=== PATIENT | male | born 1970 | race Caucasian/White ===

== ENCOUNTER → 2016-09-25 | Outpatient (CLI) | payer BC ==
--- NOTE | 2016-09-25 15:13 | DX ---
Lumbar spine 2 views History: Chronic low back pain. Comparison: MR lumbar spine December 15, 2012. Findings: Mild dextroscoliosis of the lumbar spine is present. There is slight increase in 10 mm ante rolisthesis of L5 on S1, previously 5 mm. Bilateral L5 pars defects are suspected. Vertebral body hei ghts are preserved. Moderate vertebral spondylosis is present at L5-S1. Mild degenerative change is p resent in the sacroiliac joints. Impression: 1. 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 2. Mild dextroscoliosis.
== END ==
LOC: FIMAGING 13:40
PROVIDERS: ATTEND Orthopaedic Surgery Orthopaedic Surgery of the Spine
DX: M47.897 Other spondylosis, lumbosacral region (principal)

== ENCOUNTER → 2016-10-30 | Outpatient (CLI) | payer BC | LOC: FIMAGING 14:44 | PROVIDERS: ATTEND Psychiatry & Neurology Neurology | DX: G35 Multiple sclerosis (principal) ==

== ENCOUNTER → 2017-03-22 | Outpatient (CLI) | payer BC | LOC: FIMAGING 16:23 | PROVIDERS: ATTEND Orthopaedic Surgery Orthopaedic Surgery of the Spine | DX: Z09 Encounter for follow-up examination after completed treatment for conditions other than malignant neoplasm (principal); Z78.0 Asymptomatic menopausal state ==

== ENCOUNTER → 2017-05-18 | Outpatient (CLI) | payer BC | LOC: FIMAGING 10:06 | PROVIDERS: ATTEND Orthopaedic Surgery Orthopaedic Surgery of the Spine | DX: Z09 Encounter for follow-up examination after completed treatment for conditions other than malignant neoplasm (principal); Z98.1 Arthrodesis status ==

== ENCOUNTER → 2017-08-18 | Outpatient (CLI) | payer BC | LOC: FIMAGING 10:54 | PROVIDERS: ATTEND Orthopaedic Surgery Orthopaedic Surgery of the Spine | DX: Z98.1 Arthrodesis status (principal) ==

== ENCOUNTER → 2017-11-18 | Outpatient (CLI) | payer BC | LOC: FIMAGING 10:30 | PROVIDERS: ATTEND Orthopaedic Surgery Orthopaedic Surgery of the Spine | DX: Z98.1 Arthrodesis status (principal) ==